=== PATIENT | female | born 1975 | race American Indian/Alaskan Native ===

== ENCOUNTER 2019-01-03 14:26 | Emergency (ER) | payer SELFPAY ==
--- NOTE | 2019-01-03 15:03 | Emergency Department Report ---
Blank Doc - Documentation Documentation: This is a 43-year-old female that presents with left arm pain. Denies any inj uries or trauma. Denies any chest pain. Denies any other complaints or symptoms. This initial assessment/diagnostic orders/clinical plan/treatment(s) is/are subject to change based on patient's health status, clinical progression and re- assessment by fellow clinical providers in the ED. Further treatment and workup at subsequent clinical providers discretion. Patient/guardians urged not to el ope from the ED as their condition may be serious if not clinically assessed and managed. Initial orders include: 1- Patient sent to [facility] for further evaluation and treatment 2- Doppler US
[2019-01-03 15:05] VITALS: BP 144/85
--- NOTE | 2019-01-03 16:07 | Vascular Lab Report ---
LEFT UPPER EXTREMITY VENOUS DOPPLER ULTRASOUND HISTORY: Left upper extremity pain for 2 weeks COMPARISON: None. TECHNIQUE: Grayscale, color and spectral Doppler imaging of the venous system of the right upper extr emity was performed. FINDINGS: Internal Jugular Vein: Normal grayscale appearance and flow. Subclavian Vein: Normal grayscale appearance and flow. Axillary Vein: Normal venous flow, compressibility and augmentation. Brachial vein: Normal venous flow, compressibility and augmentation. Basilic vein: Normal venous flow, compressibility and augmentation. Cephalic vein: Normal venous flow, compressibility and augmentation. Additional Findings: None. IMPRESSION: 1. No sonographic evidence of deep venous thrombosis in the left upper extremity. Signer Name: Yonatan Wayne Jr, MD Signed: 01/03/2019 4:02 PM Workstation Name: [id number]
--- NOTE | 2019-01-03 16:48 | Emergency Department Report ---
HPI - General Chief Complaint: Extremity Problem,Nontraumatic Time Seen by Provider: 01/03/19 15:02 - HPI HPI: PT TO ER CO LUE PAIN. SHE HAS SEEN PCP NO TRAUMA. STATES SHE CAN HARDLY MOVE ARM. ED Past Medical Hx - Past Medical History Previous Medical History?: No - Surgical History Past Surgical History?: No - Social History Smoking Status: Unknown if ever smoked Substance Use Type: None ED Review of Systems ROS: Stated complaint: L ARM PAIN/SOB Other details as noted in HPI Comment: All other systems reviewed and negative Physical Exam - Physical Exam Vital Signs: Vital Signs 01/03/19 14:59 Temperature 98 F Pulse Rate 82 Respiratory 18 Rate Blood Pressure 144/85 O2 Sat by Pulse 98 Oximetry Physical Exam: WDWN patient in NAD VS per RN flow sheet Alert and oriented to person, place and time. S1-S2. No S3 or S4. No systolic or diastolic murmur. No JVD. No pitting edema. Lungs clear to auscultation bilaterally anteriorly and posteriorly. Abdomen soft nontender bowel soundsX4 LUE PAIN OVER BICEPT AREA. RAD/ULNAR PULSE PLUS 2. NO EDEMA. LIKELY LIPOMA Moves all extremities well. Mood and affect appropriate. ED Course Vital Signs 01/03/19 14:59 Temperature 98 F Pulse Rate 82 Respiratory 18 Rate Blood Pressure 144/85 O2 Sat by Pulse 98 Oximetry ED Medical Decision Making - Radiology Data Radiology results: report reviewed, image reviewed - Medical Decision Making US NEG Vital Signs 01/03/19 14:59 Temperature 98 F Pulse Rate 82 Respiratory 18 Rate Blood Pressure 144/85 O2 Sat by Pulse 98 Oximetry PT GOT TEST RESULTS AND THEN LEFT ER - Differential Diagnosis RO DVT Critical care attestation.: If time is entered above; I have spent that time in minutes in the direct care of this critically ill patient, excluding procedure time. ED Disposition Clinical Impression: Arm pain Disposition: Z-07 ELOPED Is pt being admited?: No Does the pt Need Aspirin: No Condition: Stable Referrals: PRIMARY CARE, [Primary Care Provider] - 3-5 Days Time of Disposition: 16:48
[2019-01-04] MEDS ORDERED: SUBLIMAZE ONE (11:29)
[2019-01-04] MEDS ORDERED: ZEMURON IV ONE (11:57)
[2019-01-04] MEDS ORDERED: DILAUDID ONE (11:57)
[2019-01-04] MEDS ORDERED: DIPRIVAN 10 MG/ML IV ONE (11:57)
[2019-01-04] MEDS ORDERED: XYLOCAINE MPF 2% ONE (11:57)
== END 2019-01-03 16:35 | disposition left against medical advice (07) ==
LOC: ED 14:26
DX: M79.602 Pain in left arm (principal)
CPT/HCPCS: 99284; J1170; J2704; J3010